=== PATIENT | male | born 1960 | race Caucasian/White ===

== ENCOUNTER 2016-05-14 13:29 | Inpatient (IN) | payer OTHER ==
[~2016-05-14] VITALS: Ht 165.1 cm; Wt 74.8 kg
[~2016-05-14 13:29] MED LIST: ASPIRIN EC325 M2 PO; CLOPIDOGREL75 M1 PO; LIPITOR40 M1 PO; LISINOPRIL2.5 MG PO; LOPRESSOR 25MG25 MG PO
--- NOTE | 2016-05-14 15:42 | ED UPPER/LOWER EXTREMITY COMPL ---
History of Present Illness General Chief Complaint: Plantar Puncture Wound Stated Complaint: PUNCTURE WOUND TO L FOOT, SEEN AT [facility] BUT WORSE Source: patient Exam Limitations: no limitations Vital Signs & Intake/Output Vital Signs & Intake/Output Vital Signs Date Time Temp Pulse Resp B/P Pulse O2 O2 Flow FiO2 Ox Delivery Rate 05/14 2052 98.2 66 17 140/83 96 Room Air 05/14 1348 98.0 76 20 135/89 99 Room Air Allergies Coded Allergies: Penicillins (CHILDHOOD REACTION PT THINKS RASH 05/14/16) Reconcile Medications Aspirin (Ecotrin*) 325 MG TABLET.DR 0.5 TAB PO DAILY HEART/BLOOD (Reported) Atorvastatin Calcium (Lipitor) 40 MG TABLET 1 TAB PO DAILY CHOLESTEROL ( Reported) Clopidogrel Bisulfate (Clopidogrel) 75 MG TABLET 1 TAB PO DAILY BLOOD THINNER (Reported) Lisinopril 2.5 MG TABLET 1 TAB PO DAILY BP (Reported) Metoprolol Succinate 25 MG TAB 0.5 TAB PO BID HEART/BP (Reported) Triage Note: PT PRESENTS TO ER C/O OF LEFT FOOT PAIN SINCE SATURDAY. PT STATES HE WAS SEEN AT [facility] ON SATURDAY AFTER A WORK INJURY. PT STATES HE HAD A METAL PIECE GO THROUGH HIS BOOT AT WORK AND HE HAD A PUNCTURE WOUND TO THE BOTTOM OF LEFT FOOT. PT STATES HE WAS STARTED ON KEFLEX AFTER AN XRAY AND WAS ALSO GIVEN PERCOCET FOR PAIN BUT HAS NOT HAD ANY RELIEF. PT STATES TODAY FOOT IS SWOLLEN AND VERY PAINFUL. PT STATES HE WAS NOT HAPPY WITH CARE AT [facility] AND WOULD LIKE TO GET CHECKED OUT. PT STATES HE WAS SUPPOSE TO FOLLOW UP WITH [facility] BUT HAS NOT YET CALLED Triage Nurses Notes Reviewed? yes Onset: Gradual Duration: getting worse Timing: recent history Severity: severe Severity Numbers: 7 HPI: Patient is a 56-year-old male with a past medical history of coronary artery disease times one stent ON PLAVIX who presents emergency room stating 4 days ago he was at work wearing industrial boots where he stepped on a metal sharp object which penetrated his shoe and foot below and above which she subsequently pulled the object out where he was evaluated at [facility] emergency room received x-ray showing concerns of debris and concerns of foreign body which she was administered IV antibiotics and Keflex outpatient. Patient returns to the emergency room with worsening left foot swelling redness and pain. Denies any fever chills. Denies any active discharge. Foot pain is localized to left Tetanus was updated at [facility] emergency room (KATELYN LOMELI) Past History Travel History Traveled to [place] past 21 day No Medical History Any Pertinent Medical History? see below for history Cardiovascular: CAD, hypertension, hyperlipidemia, myocardial infarction History of MRSA: No History of VRE: No History of CDIFF: No Surgical History Surgical History: non-contributory Psychosocial History Who do you live with Spouse Services at Home None What is your primary language Bahamian Tobacco Use: Current Daily Use Daily Tobacco Use Amount/Type: => 5 Cigarettes daily Family History Family History, If Any: FATHER (Didnt know father well). MOTHER (Hip fracture). SISTER (PE). BROTHER (Hypertension). Hx Contributory? No (KATELYN LOMELI) Review of Systems Review of Systems Constitutional: Denies: chills, fever. EENTM: Reports: no symptoms. Respiratory: Reports: no symptoms. Cardiovascular: Reports: no symptoms. Gastrointestinal/Abdominal: Reports: no symptoms. Genitourinary: Reports: no symptoms. Musculoskeletal: Reports: see HPI, muscle pain. Skin: Reports: see HPI, erythema. Neurological/Psychological: Reports: no symptoms. Hematologic/Endocrine: Reports: no symptoms. Immunological: Reports: no symptoms. All Other Systems: Reviewed and Negative (KATELYN LOMELI) Physical Exam Physical Exam General Appearance: no apparent distress, alert, comfortable Head: atraumatic Neurologic/Tendon: normal sensation, normal motor functions, normal tendon functions, responds to pain, no evidence tendon injury, no pulse deficit Skin: normal color Comments: Well-developed well-nourished no apparent distress. HEENT: Atraumatic, extraocular motion intact Neck: Supple, no lymphadenopathy Back: Nontender Respiratory: No respiratory distress Neuro: Alert and oriented x3 Psych: Mood affect normal, normal memory normal judgment. Diagram Feet Bottom 1) 2 mm circular puncture wound noted 2) Generalized erythema warmth swelling and tenderness Feet Top 1) Well-healing 2 mm puncture wound no active discharge 2) Generalized erythema warmth tenderness and swelling (KATELYN LOMELI) Progress Differential Diagnosis: arterial insufficiency, cellulitis, CHF, compartment syndrome, contusion, dislocation, DVT, fracture, gout, septic arthritis, sprain, tendon injury, FOREIGN BODY RETENTION Plan of Care: Orders Procedure Date/time Status Admit to inpatient 05/14 2050 Active Vital Signs 05/14 2050 Active Code Status 05/14 2050 Active Patient Data 05/14 193 Active BLOOD CULTURE 05/14 1609 Active COMPREHENSIVE METABOLIC PANEL 05/14 161 Complete CBC WITHOUT DIFFERENTIAL 05/14 1609 Complete Intake & Output 05/14 1554 Active Laboratory Tests 05/14/16 1625: Anion Gap 12, Estimated GFR > 60, BUN/Creatinine Ratio 11.4, Glucose 94, Calcium 10.4 H, Total Bilirubin 0.7, AST 15 L, ALT 25, Alkaline Phosphatase 87, Total Protein 8.1, Albumin 4.3, Globulin 3.8, Albumin/Globulin Ratio 1.1, CBC w Diff NO MAN DIFF REQ, RBC 4.90, MCV 88.2, MCH 28.7, RDW 15.0 H, MPV 7.7, Gran % 81.4 H, Lymphocytes % 13.8 L, Monocytes % 4.3, Eosinophils % 0.4, Basophils % 0.1, Absolute Granulocytes 9.8 H, Absolute Lymphocytes 1.7, Absolute Monocytes 0.5, Absolute Eosinophils 0.1, Absolute Basophils 0, PUBS MCHC 32.6 L Microbiology 05/14 165 BLOOD: Blood Culture - RECD 05/14 1624 BLOOD: Blood Culture - RECD Patient has been on a four-day regiment of antibiotics outpatient in which per patient the symptoms have progressively worsened for concerns of cellulitis and possible foreign body retention. Dr. Beltran evaluated patient and agrees with disposition and plan. Patient will be admitted to general medicine under hospitalist and MAY require surgical intervention and washout and possible removal foreign body Dr. Beltran does state me that he is not overwhelmingly convinced that there is a foreign body however (PATRICIA HUDDLESTON,KATELYN) Diagnostic Imaging: Viewed by Me: Radiology Read. Radiology Impression: SEE COMMENTS Comments: PATIENT: KIRAN DAY PRESENT AGE: 56 PATIENT ACCOUNT NO: [id number] : 56 LOCATION: [facility] ORDERING PHYSICIAN: KATELYN HUDDLESTON SERVICE DATE: 05/14/16 EXAM TYPE: RAD - XRY-FOOT COMPLETE, LEFT EXAMINATION: XR FOOT, LEFT CLINICAL INFORMATION: Status post puncture wound. Evaluate for foreign body. COMPARISON: None TECHNIQUE: AP, lateral, and oblique views of the left foot. FINDINGS: There is a 7 mm oblong maximal dimension opacity identified in between the distal shaft of the left second and third metatarsals only visualized on the frontal radiograph indeterminate in location and etiology. This could represent a sliver of glass in the proper clinical setting. There are degenerative changes in the first metatarsophalangeal joint. IMPRESSION: Indeterminate opacity only visualized on one view, question foreign body location indeterminate. (KATELYN LOMELI) Departure Departure Disposition: STILL A PATIENT Condition: Stable Clinical Impression Primary Impression: Cellulitis of left foot Secondary Impressions: Foreign body in foot, left Referrals: MARION LORA MD (PCP/Family) Departure Forms: Customer Survey General Discharge Information Admission Note Spoke With: DAVIDE ARROYO MD Documentation of Exam: Documentation of any treatments & extenuating circumstances including Concerns Regarding Discharge (functional status, medication knowledge or non-compliance, living conditions, etc.) that warrant an admission rather than observation: [ Discussed patient with Dr. ARROYO who agrees with general medicine admission for concerns of foreign body retention and cellulitis that has failed outpatient treatment with antibiotics. Patient requires IV antibiotics, podiatry consultation, and possible surgical intervention. Outpatient treatment at this time would be medically harmful] (KATELYN LOMELI) PA/BIOFUELS RESEARCH SCIENTIST Co-Sign Statement Statement: ED Attending supervision documentation- [] I saw and evaluated the patient. I have also reviewed all the pertinent lab results and diagnostic results. I agree with the findings and the plan of care as documented in the PA's/BIOFUELS RESEARCH SCIENTIST's documentation. [x] I have reviewed the ED Record and agree with the PA's/BIOFUELS RESEARCH SCIENTIST's documentation. [] Additions or exceptions (if any) to the PAs/BIOFUELS RESEARCH SCIENTIST's note and plan are summarized below: [] (MORIAH ANDREA DO
--- NOTE | 2016-05-14 16:49 | RADIOLOGY REPORT ---
EXAMINATION: XR FOOT, LEFT CLINICAL INFORMATION: Status post puncture wound. Evaluate for foreign body. COMPARISON: None TECHNIQUE: AP, lateral, and oblique views of the left foot. FINDINGS: There is a 7 mm oblong maximal dimension opacity identified in between the distal shaft of the left second and third metatarsals only visualized on the frontal radiograph indeterminate in location and etiology. This could represent a sliver of glass in the proper clinical setting. There are degenerative changes in the first metatarsophalangeal joint. IMPRESSION: Indeterminate opacity only visualized on one view, question foreign body location indeterminate.
[2016-05-14 17:22] LABS: ABSOLUTE BASOPHIL COUNT 0 /CUMM (0.0-0.2); ABSOLUTE EOSINOPHIL COUNT 0.1 /CUMM (0.0-0.7); ABSOLUTE GRANULOCYTE CT 9.8 /CUMM (1.4-6.5); ABSOLUTE LYMPH COUNT 1.7 /CUMM (1.2-3.4); ABSOLUTE MONOCYTE COUNT 0.5 /CUMM (0.10-0.60); BASOPHIL % 0.1 % (0.0-2.0); EOSINOPHIL % 0.4 % (0-5); GRANULOCYTE % 81.4 % (42.2-75.2); HEMATOCRIT 43.3 % (42-52); MEAN CORPUSCULAR HGB 28.7 PG (27.0-31.0); MEAN CORPUSCULAR HGB CONC 32.6 G/DL (33.0-37.0); MEAN CORPUSCULAR VOLUME 88.2 FL (80.0-94.0); MEAN PLATELET VOLUME 7.7 FL (7.4-10.4); PLATELET COUNT 368 /CUMM (130-400); WHITE BLOOD CELL COUNT 12.1 /CUMM (4.8-10.8)
[2016-05-14] MEDS ORDERED: LISINOPRIL2.5 M1 PO (18:46)
[2016-05-14] MEDS ORDERED: METOPROLOL SUCC25 M1 PO (18:46)
--- NOTE | 2016-05-14 21:47 | History & Physical ---
MARILYN MCKEON MD 05/14/16 2146: General Information and HPI History of Present Illness: 56-year-old man with past medical history of coronary artery disease status post PCI with stent (2012) seen for evaluation of a left foot puncture wound. 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 The piece of metal pierced his left and went through his foot. The patient immediately remove the piece of metal and feels he "got all of it". There was a scant amount of blood loss that quickly stopped. Patient continued to work with this injury before returning to home that evening for which then he will went to [facility] for evaluation. Patient was assessed and reportedly given Keflex and Percocet and discharged home, a she reports he did not receive a tetanus shot as his immunization is up-to-date as of this past December. Presently patient reports that he has had persistent pain in his left foot and limited mobility secondary to pain. He notes a bright red rash that has begun on the dorsal aspect of the foot that is severely tender without any associated drainage. Otherwise patient denies any headache, fever, chills, chest pain, palpitations, shortness of breath, nausea, vomiting, diarrhea, numbness/tingling. Past medical history-CAD status post PCI with stent (2012), hypertension, hyperlipidemia, current every day smoker Social history-smokes half pack per day since 2012 previously smoking 1 pack per day for 40 years, occasional social drinker, denies recreational drug use like marijuana or cocaine Allergies/Medications Allergies: Coded Allergies: Penicillins (CHILDHOOD REACTION PT THINKS RASH 05/14/16) Home Med list Aspirin (Ecotrin*) 325 MG TABLET. 0.5 TAB PO DAILY HEART/BLOOD (Reported) Atorvastatin Calcium (Lipitor) 40 MG TABLET 1 TAB PO DAILY CHOLESTEROL ( Reported) Clopidogrel Bisulfate (Clopidogrel) 75 MG TABLET 1 TAB PO DAILY BLOOD THINNER (Reported) Lisinopril 2.5 MG TABLET 1 TAB PO DAILY BP (Reported) Metoprolol Succinate 25 MG TAB 0.5 TAB PO BID HEART/BP (Reported) Past History Travel History Traveled to [place] past 21 day No Medical History Cardiovascular: CAD, hypertension, hyperlipidemia, myocardial infarction History of MRSA: No History of VRE: No History of CDIFF: No Surgical History Surgical History: non-contributory Past Family/Social History Family History Relations & Conditions if any FATHER (Didnt know father well). MOTHER (Hip fracture). SISTER (PE). BROTHER (Hypertension). Psychosocial History Where do you live? Home Services at Home: None Review of Systems Review of Systems Constitutional: Reports: see HPI. Exam & Diagnostic Data Last 24 Hrs of Vital Signs/I&O Vital Signs Date Time Temp Pulse Resp B/P Pulse O2 O2 Flow FiO2 Ox Delivery Rate 05/14 2052 98.2 66 17 140/83 96 Room Air 05/14 1348 98.0 76 20 135/89 99 Room Air Intake & Output 05/14 1600 05/14 0800 05/14 0000 Intake Total Output Total Balance Patient 74.843 kg Weight Physical Exam General Appearance Alert, Oriented X3, Cooperative, No Acute Distress Skin Erythematous / tender rash on left foot HEENT Atraumatic, EOMI, Mucous Membr. moist/pink Neck Supple Cardiovascular Regular Rate, Normal S1, Normal S2, No Murmurs Lungs Clear to Auscultation, Normal Air Movement Abdomen Normal Bowel Sounds, Soft, No Tenderness, No Hepatospenomegaly, No Masses Neurological Normal Speech, Normal Tone, Sensation Intact, Cranial Nerves 3-12 NL Extremities No Clubbing, No Cyanosis, No Edema, Normal Pulses, No Tenderness/ Swelling, Puncture wound to distal plantar aspect of left foot with minimal scabbing and no associated drainage/induration/erythema, Exit wound to mid doral aspect of left foot with associated erythema/induration and no drainage, pulses intact, warm to touch, severe tenderness to distal foot, no deformity or obvious foreign body Vascular Normal Pulses, Pulses Symmetrical Last 24 Hrs of Labs/Jonathan: Laboratory Tests 05/14/16 1625: Anion Gap 12, Estimated GFR > 60, BUN/Creatinine Ratio 11.4, Glucose 94, Calcium 10.4 H, Total Bilirubin 0.7, AST 15 L, ALT 25, Alkaline Phosphatase 87, Total Protein 8.1, Albumin 4.3, Globulin 3.8, Albumin/Globulin Ratio 1.1, CBC w Diff NO MAN DIFF REQ, RBC 4.90, MCV 88.2, MCH 28.7, RDW 15.0 H, MPV 7.7, Gran % 81.4 H, Lymphocytes % 13.8 L, Monocytes % 4.3, Eosinophils % 0.4, Basophils % 0.1, Absolute Granulocytes 9.8 H, Absolute Lymphocytes 1.7, Absolute Monocytes 0.5, Absolute Eosinophils 0.1, Absolute Basophils 0, PUBS MCHC 32.6 L Microbiology 05/14 1655 BLOOD: Blood Culture - RECD 05/14 1624 BLOOD: Blood Culture - RECD Diagnostic Data Other Results EXAM TYPE: RAD - XRY-FOOT COMPLETE, LEFT IMPRESSION: Indeterminate opacity only visualized on one view, question foreign body location indeterminate. Assessment/Plan Assessment: 56-year-old man with multiple medical problems seen for evaluation of a puncture wound to his left foot this past Saturday. ED course: -Vitals: Temp 98.0-98.2, HR 66-76, RR 17-20, BP 135-140/83-89, O2 96-99% on room air -Significant Labs: WBC 12.1, Hgb/HCT 14.1/43.3, normal serum chemistries, calcium 10.4 (corrected calcium 10.2), AST/ALT 15/25, alkaline phosphatase 87 -Studies: Left foot [id number] opacity only visualized on one view possible foreign body -Interventions: Toradol, ciprofloxacin IV, ceftriaxone IV, blood cultures Cellulitis with possible retained foreign body status post puncture wound Patient with traumatic penetrating wound to left foot with immediate self extraction of the foreign body. Previously seen and evaluated at [facility] and discharged with oral Keflex and Percocet. X-ray demonstrates a possible retained foreign body. Patient was given 1 dose of ciprofloxacin and ceftriaxone in the ED. -General medicine -Ceftazidime 1 g IV every 8 hours -Clindamycin 600 mg IV every 8 hours -Podiatry consult -Follow up blood cultures CAD with past SC status post PCI with stent -Aspirin 162 mg by mouth daily -Plavix 75 mg by mouth daily Hypertension -Lisinopril 2.5 mg by mouth daily -Metoprolol 12.5 mg by mouth twice a day Hyperlipidemia-atorvastatin 40 mg by mouth daily Current every day smoker-Wellbutrin Pain plan-Toradol/acetaminophen/morphine Diet-heart healthy diet DVT prophylaxis-Lovenox CODE STATUS-full code As Ranked By This Provider Problem List: 1. Cellulitis of left foot 2. Foreign body in foot, left Core Measures/Miscellaneous Acute Coronary Syndrome ACS Diagnosis: No Cerebrovascular Accident CVA/TIA Diagnosis: No Congestive Heart Failure CHF Diagnosis: No Venous Thromboembolism VTE Risk Factors: Acute medical illness, Age > 40 [facility] prophylaxis d/t: LE Injury, current No VTE Pharm Prophylaxis d/t: No contraindications VTE Diagnosis: No VTE Type: NONE VTE Confirmed by (Test): NONE Severe Sepsis Severe Sepsis Present: No Septic Shock Septic Shock Present: No Miscellaneous Documentation Attending Case Discussed With: DAVIDE ARROYO MD Primary Care Physician: MARION LORA MD Patient sees these Specialists Dr. Mondragon Level of Patient Care: General Medicine Consults Needed: Consulting Specialty: Podiatry NEW ALEXIS 05/14/16 2210: Resident Review Statement Resident Statement: examined this patient, discussed with international trade teacher, agreed with international trade teacher Other Findings: Patient is a 53-year-old gentleman with past medical history significant for coronary artery disease status post stent 2013, hypertension and hyperlipidemia presented to the ED for the evaluation of left foot puncture wound with swelling. The injury happened on Saturday, when he stepped out of the truck on a sharp nail, the nail went through the left foot. He immediately removed the nail, noticed minimal bleeding. He continued to work during the day, during the night the swelling of the left foot got worse he went to the [place] ED and was discharged on Keflex and Bactrim. Patient took the diabetic for 3 days without any improvement and he came to the ED for further evaluation. Patient is up-to-date with his vaccines received tetanus shot last December 2015. In the ED patient reported pain 8/10 throbbing pain in the left foot without any radiation. Denied any fever or chills. Denied any chest discomfort or breathing palpitations no urinary bowel habit complaints. Patient continues to smoke half pack a day. Occasional drinker denies any illicit drug use. Vitals on admission to be 98, heart rate 66, respiratory rate 20, blood pressure 135/89 on room air. Appearance: Alert and oriented 3 , moderate distress Skin: Grossly normal. HEENT: PEERLA Neck: Supple, No JVD Cardiovascular: Regular Rate, Normal S1, Normal S2, No Murmurs Lungs: Lungs clear to auscultation bilaterally Abdomen: Normal bowel sounds without any tenderness Neurological: Neuro exam intact grossly Extremities: Puncture wound evident on distal plantar region of left foot , without any erythema or induration . Exit wound on mid doral aspect of left foot , associated erythema/redness, without any discharge.pulses palpable , pulses intact, severe tenderness on palpation. No obvious signs of foreign body Vascular: Normal Pulses. Pertinent labs on admission: Leukocytosis 12.1 without any bandemia, H&H stable 14.1/43.3, normal BEP, serum calcium level X.4 with corrected calcium of 10.2. Left foot x-ray:Indeterminate opacity only visualized on one view, question foreign body location indeterminate. Assessment and plan 1. Cellulitis of the left foot status post puncture wound: * Admit the patient [facility] floor. * Patient received one-time dose of IV ciprofloxacin, ceftriaxone, we'll start the patient on IV ceftazidime to cover for possible pseudomonal infection and IV clindamycin to cover for anaerobes. * Blood pressure stable no need of IV fluids for now, * Watch for hemodynamic instability. * Severe pain controlled with IV morphine continue Toradol for moderate pain controlled. * Follow-up blood cultures and modify antibiotics according to the cultures * Patient has been evaluated by the gas appliance adjuster Dr. Quinones in the ED recommended to continue with IV antibiotics. If there is no improvement in the swelling in the next 24-48 hours, patient will require surgical intervention to remove foreign body. * Ct of left lower ext for further evaluation of foreign body * Keep the leg elevated. 2. History of coronary artery disease status post stent, hypertension and hyperlipidemia * Continue aspirin and Plavix metoprolol and statin, lisinopril from morning. 3. Current every day smoker. Continue bupropion Moderate severe pain controlled with IV morphine Heart healthy diet DVT prophylaxis with subcutaneous Lovenox Patient is full code. DINAMUNIRWARD 05/15/16 0645: Attending MD Review Statement Attending Statement Attending MD Statement: examined this patient, discuss w/resident/PA/BOWLING TEACHER, agreed w/resident/PA/BOWLING TEACHER, discussed with family, reviewed EMR data (avail), reviewed images, amended to note Attending Assessment/Plan: CC: Penetrating wound on left foot PMH: CAD S/P stent Patient had a puncture wound 4 days back, metal object went through and through, penetrating from plantar aspect obliquely coming out from the dorsal aspect of foot, patient pulled that object out (not sure if completely), worked that day then went to [facility] where he was prescribed oral antibiotics ( Keflex). Pain redness swelling worsened on that foot, so he came to ER. Endorses chills but no fever. Vitals: Afebrile, pulse, RR, blood pressure, O2 saturation within acceptable range. On examination a O 3, no acute distress, neck supple, no JVD, no lymphadenopathy, mucosa moist, peripheral pulses perfusion normal, no focal neurological deficit, CVS: S1-S2, RRR. RS: Clear to auscultate bilaterally., Abdomen: Soft, NT, ND, bowel sounds present. Left lower extremity has a puncture wound on the plantar and dorsal aspect, dorsal aspect times surrounding cellulitis marked, no obvious discharge, pulses perfusion intact, joint movements at the metatarsophalangeal joints ankle joint intact. Labs: WBC 12.1, neutrophils 81%, calcium 10.4 otherwise CBC BMP unremarkable. Foot x-ray: Intermediate opacity only visualized on one view, question foreign body location indeterminate A and P #1 right foot cellulitis after penetrating wound, with possible foreign body inside the foot, obtain CT for further evaluation, appreciate for nitric consult , given suspected foreign body in penetrating wound, continue ceftaz and clindamycin for broader coverage, blood culture, de-escalate antibiotics according to clinical improvement, trend lactate #2 resume including aspirin, atorvastatin, lisinopril, metoprolol, bupropion, hold Plavix for expected surgery.
--- NOTE | 2016-05-14 21:55 | Cons- Podiatry ---
General Information and HPI Consulting Request Date of Consult: 05/14/16 Requested By: DAVIDE ARROYO MD History of Present Illness: Mr Bonilla is a 56 year old male who sustained a puncture injury to his left foot a few days ago while at work. He states that he stepped down on a metal projection, which entered his plantar foot and exited through the dorsum. He was wearing a sock and a boot at the time. He initially presented to [facility] and was given a dose of IV antibiotics and sent home with po keflex. He states that his foot has worsened despite the keflex, with an increase in pain, redness and swelling. He denies systemic signs of infection. Denies nausea, vomiting, fever or chills. Allergies/Medications Allergies: Coded Allergies: Penicillins (CHILDHOOD REACTION PT THINKS RASH 05/14/16) Home Med List: Aspirin (Ecotrin*) 325 MG TABLET.DR 0.5 TAB PO DAILY HEART/BLOOD (Reported) Atorvastatin Calcium (Lipitor) 40 MG TABLET 1 TAB PO DAILY CHOLESTEROL ( Reported) Clopidogrel Bisulfate (Clopidogrel) 75 MG TABLET 1 TAB PO DAILY BLOOD THINNER (Reported) Lisinopril 2.5 MG TABLET 1 TAB PO DAILY BP (Reported) Metoprolol Succinate 25 MG TAB 0.5 TAB PO BID HEART/BP (Reported) Past History Medical History Cardiovascular: CAD, hypertension, hyperlipidemia, myocardial infarction Surgical History Pertinent Surgical History: non-contributory Family History Relations & Conditions If Any: FATHER (Didnt know father well). MOTHER (Hip fracture). SISTER (PE). BROTHER (Hypertension). Psychosocial History Services at Home: None Review of Systems Review of Systems: Unremarkable except for that noted in history of present illness. Exam & Diagnostic Data Vital Signs and I&O Vital Signs Date Time Temp Pulse Resp B/P Pulse O2 O2 Flow FiO2 Ox Delivery Rate 05/14 2052 98.2 66 17 140/83 96 Room Air 05/14 1348 98.0 76 20 135/89 99 Room Air Intake & Output 05/14 1600 05/14 0800 05/14 0000 05/13 1600 05/13 0800 05/13 0000 Intake Total Output Total Balance Patient 165 lb Weight Physical Exam: Neurovascular status intact. Stellate puncture site noted plantarly at the central ball of the foot, with an exit site noted dorsally at the midfoot. Edema and cellulitis noted about the forefoot, with extension proximally to the distal leg. No fluctuance or crepitus noted. Assessment/Plan Assessment/Plan Cellulitis left foot, s/p puncture wound. Recommend admission for IV antibiotics. Elevate the foot. Will monitor for improvement. If no clinical improvement in 24-48 hours, will irrigate foot and remove foreign body. Consult Acknowledgment - Thank you for your consult request. Attending MD Review Statement Attending Statement Attending MD Statement: examined this patient
[2016-05-14 22:58] VITALS: BP 122/74
--- NOTE | 2016-05-15 06:30 | PN- Housestaff ---
MIKE RICHARD,MARILYN 05/15/16 0626: Subjective Follow-up For: Left foot puncture wound Left foot cellulitis Left foot retained foreign body Subjective: Patient seen and examined. He is seen lying flat in bed resting comfortably. He appears to be in no acute distress. He reports that he pain is well controlled on the current pain medication regimen and that his foot appears to be improving. Otherwise he has no new complaints. Otherwise he denies any headache, fever, chills, chest pain, palpitations, shortness of breath, cough, nausea, vomiting, diarrhea. No overnight events reported. Review of Systems Constitutional: Reports: see HPI. Objective Last 24 Hrs of Vital Signs/I&O Vital Signs Date Time Temp Pulse Resp B/P Pulse O2 O2 Flow FiO2 Ox Delivery Rate 05/14 2258 97.3 65 20 122/74 95 Room Air 05/14 2053 98.2 66 17 140/83 96 Room Air 05/14 1348 98.0 76 20 135/89 99 Room Air Intake & Output 05/15 0800 05/15 0000 05/14 1600 Intake Total Output Total Balance Patient 74.843 kg 74.843 kg Weight Physical Exam General Appearance: Alert, Oriented X3, Cooperative, No Acute Distress Other Physical Findings: General - well developed, well nourished middle aged caucasiasn man in no acute distress HEENT - NCAT, PERRL, EOMI, anicteric sclera CVS - S1, S2 w/o m/g/r Resp - CTA bilaterally GI - soft, nontender, nondistended, bowel sounds intact Neuro - Awake and alert, CN II - XII grossly intact Ext - normal pulses, no cyanosis/clubbing/edema, mild improvement of the left foot erythema, persistent warmth and tenderness, no obvious drainage or deformity Current Medications: Current Medications Sig/Andrea Start time Last Medication Dose Route Stop Time Status Admin Acetaminophen 650 MG Q6P PRN 05/14 2200 AC PO Aspirin Buffered 162 MG DAILY 05/15 1000 AC PO Atorvastatin Calcium 40 MG DAILY 05/15 1000 AC PO Ceftazidime 1,000 MG Q8H 05/15 0100 AC 05/15 IV 0100 Ceftazidime 1,000 MG IQ8 05/14 2199 DC IV Ceftriaxone Sodium 0 .STK-MED ONE 05/14 1744 DC .ROUTE Ceftriaxone Sodium 1,000 MG ONCE ONE 05/14 1730 DC 05/14 IV 05/14 1731 1818 Ciprofloxacin 0 .STK-MED ONE 05/14 1743 DC PO Ciprofloxacin 500 MG ONCE ONE 05/14 1730 DC 05/14 PO 05/14 1731 1744 Clindamycin 600 MG Q8H 05/15 0100 AC 05/15 Dextrose/Water 50 ML IV 0105 Clindamycin 600 MG IQ8 05/14 2200 DC Dextrose/Water 50 ML IV Clopidogrel Bisulfate 75 MG DAILY 05/15 1000 AC PO Enoxaparin Sodium 40 MG DAILY 05/15 1000 AC SC Ketorolac 15 MG Q6P PRN 05/14 220 AC Tromethamine IV 05/19 2159 Ketorolac 0 .STK-MED ONE 05/14 1804 DC Tromethamine IM Ketorolac 30 MG ONCE ONE 05/14 1800 DC 05/14 Tromethamine IV 05/14 1801 1818 Lisinopril 2.5 MG DAILY 05/15 1000 AC PO Metoprolol Tartrate 12.5 MG BID 05/15 1000 AC PO Metoprolol Tartrate 12.5 MG BID 05/14 220 DC PO Morphine Sulfate 4 MG Q4P PRN 05/14 220 AC 05/15 IV 0300 Last 24 Hrs of Lab/Jonathan Results Last 24 Hrs of Labs/Mics: Laboratory Tests 05/14/16 1625: Anion Gap 12, Estimated GFR > 60, BUN/Creatinine Ratio 11.4, Glucose 94, Calcium 10.4 H, Total Bilirubin 0.7, AST 15 L, ALT 25, Alkaline Phosphatase 87, Total Protein 8.1, Albumin 4.3, Globulin 3.8, Albumin/Globulin Ratio 1.1, CBC w Diff NO MAN DIFF REQ, RBC 4.90, MCV 88.2, MCH 28.7, RDW 15.0 H, MPV 7.7, Gran % 81.4 H, Lymphocytes % 13.8 L, Monocytes % 4.3, Eosinophils % 0.4, Basophils % 0.1, Absolute Granulocytes 9.8 H, Absolute Lymphocytes 1.7, Absolute Monocytes 0.5, Absolute Eosinophils 0.1, Absolute Basophils 0, PUBS MCHC 32.6 L Microbiology 05/14 1655 BLOOD: Blood Culture - RECD 05/14 162 BLOOD: Blood Culture - RECD Assessment/Plan Assessment: Patient continues to do well while on intravenous antibiotics, he remains afebrile without leukocytosis. Per podiatry recommendations if no clinical improvement in 24-40 hours for will be irrigated with foreign body removal. CT foot pending for further evaluation of injury. Cellulitis with possible retained foreign body status post puncture wound Patient with traumatic penetrating wound to left foot with immediate self extraction of the foreign body. Previously seen and evaluated at [facility] and discharged with oral Keflex and Percocet. X-ray demonstrates a possible retained foreign body. Patient was given 1 dose of ciprofloxacin and ceftriaxone in the ED. -General medicine -Ceftazidime 1 g IV every 8 hours -Clindamycin 600 mg IV every 8 hours -Podiatry consult -Follow up blood cultures -Follow up CT foot CAD with past ID status post PCI with stent -Aspirin 162 mg by mouth daily -Plavix 75 mg by mouth daily Hypertension -Lisinopril 2.5 mg by mouth daily -Metoprolol 12.5 mg by mouth twice a day Hyperlipidemia-atorvastatin 40 mg by mouth daily Current every day smoker-Wellbutrin Pain plan-Toradol/acetaminophen/morphine Diet-heart healthy diet DVT prophylaxis-Lovenox CODE STATUS-full code Problem List: 1. Cellulitis of left foot Pain Ratin Pain Location: Left foot Pain Goal: Remain pain free Pain Plan: As noted in plan Tomorrow's Labs & Rationales: Complete blood count-cellulitis Serum chemistries-antibiotics Consulting Request: Consulting Specialty: Podiatry SCARLET PENG MD 05/15/16 1239: Attending Review Statement Attending Statement Attending MD Statement: examined this patient, discuss w/resident/PA/HEAD FILTER TANK TENDER HELPER, agreed w/resident/PA/HEAD FILTER TANK TENDER HELPER, discussed with family, reviewed EMR data (avail), discussed with nursing, reviewed images, amended to note Attending Assessment/Plan: The patient was seen and discussed with house staff. Improvement on current antibiotics noted. Await decision regarding surgery/Podiatry.
--- NOTE | 2016-05-15 06:46 | Admission Certification ---
Admission Certification Certification Statement - As attending physician, I certify that at the time of - admission, based on clinical presentation, severity of - symptoms, need for further diagnostic testing and - therapeutic interventions, and risk of adverse outcomes - without in-hospital treatment, in my clinical assessment, - this patient requires an acute hospital stay for a minimum - of two nights or longer. I have also considered psychsocial - factors such as support system, advanced age, financial - issues, cognitive issues, and failed out-patient treatments, - past re-admission history, safety of patient, and lack of - compliance as applicable. Specific rationale supporting this admission is: Left foot cellulitis with penetrating injury
[2016-05-15 08:00] VITALS: BP 122/80
[2016-05-15 08:58] LABS: ABSOLUTE BASOPHIL COUNT 0 /CUMM (0.0-0.2); ABSOLUTE GRANULOCYTE CT 6.6 /CUMM (1.4-6.5); ABSOLUTE LYMPH COUNT 1.9 /CUMM (1.2-3.4); ABSOLUTE MONOCYTE COUNT 0.7 /CUMM (0.10-0.60); RED BLOOD CELL CT 4.39 /CUMM (4.70-6.10); WHITE BLOOD CELL COUNT 9.4 /CUMM (4.8-10.8)
[2016-05-15 09:17] LABS: ABSOLUTE EOSINOPHIL COUNT 0.1 /CUMM (0.0-0.7); BASOPHIL % 0.3 % (0.0-2.0); EOSINOPHIL % 1.2 % (0-5); GRANULOCYTE % 70.9 % (42.2-75.2); MEAN CORPUSCULAR HGB 29.4 PG (27.0-31.0); MEAN CORPUSCULAR HGB CONC 33.8 G/DL (33.0-37.0); MEAN CORPUSCULAR VOLUME 86.7 FL (80.0-94.0); MEAN PLATELET VOLUME 7.8 FL (7.4-10.4); PLATELET COUNT 354 /CUMM (130-400); RBC DISTRIBUTION WIDTH 14.7 % (11.5-14.5)
[2016-05-15 09:23] LABS: HEMATOCRIT 38.1 % (42-52)
--- NOTE | 2016-05-15 13:34 | CT SCAN REPORT ---
EXAMINATION: CT LOWER EXTREMITY WITHOUT CONTRAST, LEFT CLINICAL INFORMATION: Left foot swelling status post stepping on metal, puncture wound. Evaluate for foreign body. COMPARISON: Radiograph dated 05/14/2016. TECHNIQUE: Multidetector volumetric imaging was obtained through the left foot and ankle without contrast. Multiplanar reformatted images in coronal and sagittal orientations were submitted. DLP: 377 mGy-cm. FINDINGS: Within the second metatarsal head, there is a 2.8 cm long tubular defect with a diameter of approximately 2.5 mm, corresponding to the site of a puncture wound. This extends from the dorsal cortex along the distal metatarsal shaft through the plantar aspect of the articular surface. 2 small ossific fragments are present at the dorsum of the metatarsal shaft, the larger of which measures 0.7 cm in length. No additional fractures are identified. No metallic foreign bodies are identified. There is moderate degenerative arthritis of the 1st MTP joint with a bipartite medial hallux sesamoid, nonuniform joint space narrowing, subchondral sclerosis, and marginal osteophytes. Minimal degenerative arthritis is present at the naviculocuneiform joints. Imaged portion of the ankle is unremarkable without fracture or malalignment. Calcific atherosclerosis is present within the arteries of the ankle. Tendons are grossly intact. There is subcutaneous edema and soft tissue swelling. IMPRESSION: 1. A long tubular defect in the 2nd metatarsal shaft and head with 2 small cortical fragments at the dorsal margin of the metatarsal shaft. No metallic foreign bodies are identified. No additional fractures. 2. Moderate first MTP osteoarthritis. 3. Generalized soft tissue swelling and subcutaneous disease edema in the foot.
[2016-05-15 14:29] VITALS: BP 118/80
[2016-05-15 22:17] VITALS: BP 122/69
--- NOTE | 2016-05-16 04:29 | PN- Housestaff ---
MARILYN MCKEON MD 05/16/16 0429: Subjective Follow-up For: Left foot puncture wound Left foot cellulitis Left foot retained foreign body Subjective: Patient seen and examined. He is seen lying flat in bed resting comfortably. He appears to be in no acute distress. At his bedside is a family member whom is up-to-date about his clinical condition and has no further questions at this time. Currently patient states that he is able to ambulate with the assistance of crutches and states that his pain is well controlled on the current regimen. Otherwise he has no new complaints and feels well. Additionally he denies any headache, fever, chills, chest pain, palpitations, shortness of breath, cough, nausea, vomiting, diarrhea. No overnight events reported. Review of Systems Constitutional: Reports: see HPI. Objective Last 24 Hrs of Vital Signs/I&O Vital Signs Date Time Temp Pulse Resp B/P Pulse O2 O2 Flow FiO2 Ox Delivery Rate 05/16 1434 98.4 80 20 130/80 94 05/16 0956 62 130/80 05/16 0956 62 130/80 05/16 0717 95.7 71 20 130/80 95 Room Air 05/15 2217 98.2 82 20 122/69 94 Intake & Output 05/16 1600 05/16 0800 05/16 0000 Intake Total 320 1000 Output Total Balance 320 1000 Intake, IV 80 200 Intake, Oral 240 800 Number 0 Bowel Movements Physical Exam General Appearance: Alert, Oriented X3, Cooperative, No Acute Distress Other Physical Findings: General -well-developed, well-nourished middle-aged man in no acute distress HEENT - NCAT, PERRL, EOMI, anicteric sclera Cardio - S1, S2 w/o murmurs/gallops/rubs Resp - CTA bilaterally w/o wheezing/rhochi/crackles GI - soft, nontender, nondistended, bowel sounds present Neuro - Awake and alert, CN II - XII grossly intact Extremities -normal pulses, left lower extremity elevated and a foam pad, markedly improved erythema of the dorsal aspect of the left foot, well-healed exit wound without any obvious drainage on the extremity, well-healed entrance wound on the plantar aspect of the extremity Current Medications: Current Medications Sig/Andrea Start time Last Medication Dose Route Stop Time Status Admin Acetaminophen 650 MG Q6P PRN 05/14 2200 AC PO Aspirin Buffered 162 MG DAILY 05/15 1000 AC 05/16 PO 0952 Atorvastatin Calcium 40 MG 2200 05/15 2200 AC 05/15 PO 2217 Ceftazidime 1,000 MG Q8H 05/15 0100 AC 05/16 IV 0951 Clindamycin 600 MG Q8H 05/15 0100 AC 05/16 Dextrose/Water 50 ML IV 0952 Clopidogrel Bisulfate 75 MG DAILY 05/15 1000 AC 05/16 PO 0952 Enoxaparin Sodium 40 MG DAILY 05/15 1000 AC 05/16 SC 0952 Ketorolac 15 MG Q6P PRN 05/14 2200 AC 05/15 Tromethamine IV 05/19 2159 1605 Lisinopril 2.5 MG DAILY 05/15 1000 AC 05/16 PO 0956 Metoprolol Tartrate 12.5 MG BID 05/15 1000 AC 05/16 PO 0956 Morphine Sulfate 4 MG Q4P PRN 05/14 2200 AC 05/16 IV 0625 Oxycodone/ 1 TAB Q6P PRN 05/15 1015 AC 05/16 Acetaminophen PO 1314 Patient Medication 1 ED .STK-MED ONE 05/16 1332 [facility] 05[facility]16 1333 Last 24 Hrs of Lab/Jonathan Results Last 24 Hrs of Labs/Mics: Laboratory Tests 05/16/16 0612: Anion Gap 11, Estimated GFR > 60, BUN/Creatinine Ratio 14.3, CBC w Diff NO MAN DIFF REQ, RBC 4.38 L, MCV 87.3, MCH 29.1, RDW 14.6 H, MPV 7.7, Gran % 68.1, Lymphocytes % 23.3, Monocytes % 6.9, Eosinophils % 1.2, Basophils % 0.5, Absolute Granulocytes 5.8, Absolute Lymphocytes 2.0, Absolute Monocytes 0.6, Absolute Eosinophils 0.1, Absolute Basophils 0, PUBS MCHC 33.4 Assessment/Plan Assessment: Patient continues to do well while on intravenous antibiotics, he remains afebrile without leukocytosis. Per podiatry recommendations if no clinical improvement in 24-40 hours for will be irrigated with foreign body removal. CT foot demonstrated possible small bone fragments in the dorsal margin of the foot and pulled out the presence of any foreign metallic objects. Patient is to be discharged home to complete a total antibiotic course of 7 days of clindamycin and ciprofloxacin with instruction to follow-up with his primary care provider and Dr. Beltran after discharge. He was also provided a short prescription of Percocet for pain control, CT DAIRY CONSULTANT checked and placed on chart. Cellulitis with possible retained foreign body status post puncture wound Patient with traumatic penetrating wound to left foot with immediate self extraction of the foreign body. Previously seen and evaluated at [facility] and discharged with oral Keflex and Percocet. X-ray demonstrates a possible retained foreign body. Patient was given 1 dose of ciprofloxacin and ceftriaxone in the ED. CT foot demonstrated possible small bone fragments in the dorsal margin of the foot and pulled out the presence of any foreign metallic objects. -General medicine -Ceftazidime 1 g IV every 8 hours -Clindamycin 600 mg IV every 8 hours -Podiatry consult -Follow up blood cultures CAD with past UT status post PCI with stent -Aspirin 162 mg by mouth daily -Plavix 75 mg by mouth daily Hypertension -Lisinopril 2.5 mg by mouth daily -Metoprolol 12.5 mg by mouth twice a day Hyperlipidemia-atorvastatin 40 mg by mouth daily Current every day smoker-Wellbutrin Pain plan-Toradol/acetaminophen/morphine Diet-heart healthy diet DVT prophylaxis-Lovenox CODE STATUS-full code Problem List: 1. Cellulitis of left foot Pain Ratin Pain Location: Left foot Pain Goal: Pain 4 or less Pain Plan: As noted in plan Tomorrow's Labs & Rationales: None Consulting Request: Consulting Specialty: Podiatry SCARLET PENG MD 05/16/16 1339: Attending Review Statement Attending Statement Attending MD Statement: examined this patient, discuss w/resident/PA/HIM SPECIALIST, agreed w/resident/PA/HIM SPECIALIST, discussed with family, reviewed EMR data (avail), discussed with nursing, discussed with case mgmt, reviewed images, amended to note Attending Assessment/Plan: The patient was seen and discussed with house staff and Podiatry. Significant improvement with antibiotics. OK to discharge today on po antibiotics.
[2016-05-16 07:17] VITALS: BP 130/80
[2016-05-16 08:11] LABS: ABSOLUTE BASOPHIL COUNT 0 /CUMM (0.0-0.2); ABSOLUTE EOSINOPHIL COUNT 0.1 /CUMM (0.0-0.7); ABSOLUTE GRANULOCYTE CT 5.8 /CUMM (1.4-6.5); ABSOLUTE MONOCYTE COUNT 0.6 /CUMM (0.10-0.60); BASOPHIL % 0.5 % (0.0-2.0); EOSINOPHIL % 1.2 % (0-5); GRANULOCYTE % 68.1 % (42.2-75.2); HEMATOCRIT 38.3 % (42-52); MEAN CORPUSCULAR HGB 29.1 PG (27.0-31.0); MEAN CORPUSCULAR HGB CONC 33.4 G/DL (33.0-37.0); MEAN CORPUSCULAR VOLUME 87.3 FL (80.0-94.0); MEAN PLATELET VOLUME 7.7 FL (7.4-10.4); PLATELET COUNT 357 /CUMM (130-400); RBC DISTRIBUTION WIDTH 14.6 % (11.5-14.5); RED BLOOD CELL CT 4.38 /CUMM (4.70-6.10); WHITE BLOOD CELL COUNT 8.6 /CUMM (4.8-10.8)
[2016-05-16] MEDS ORDERED: CIPRO500 M1 PO ×2 (14:09→14:12)
[2016-05-16] MEDS ORDERED: CLEOCIN HCL150 M1 PO ×2 (14:09→14:12)
[2016-05-16] MEDS ORDERED: PERCOCET 5-3251 EACH PO (14:10)
--- NOTE | 2016-05-16 14:14 | Patient Discharge Instructions ---
Discharge Instructions General Discharge Information Special Instructions: Take Ciprofloxacin and Clindamycin as directed. Take Percocet as needed for pain. Follow up with your primary care provider and Dr. Beltran after discharge. Call 911 or return to the ED should your condition worsen. Acute Coronary Syndrome Inclusion Criteria At DC or during hospital stay patient has or had the following: ACS DIAGNOSIS No Discharge Core Measures Meds if any: Prescribed or Continued at Discharge Meds if any: NOT Prescribed or Continued at Discharge Congestive Heart Failure Inclusion Criteria At DC or during hospital stay patient has or had the following: CHF DIAGNOSIS No Discharge Core Measures Meds if any: Prescribed or Continued at Discharge Meds if any: NOT Prescribed or Continued at Discharge Cerebrovascular accident Inclusion Criteria At DC or during hospital stay patient has or had the following: CVA/TIA Diagnosis No Discharge Core Measures Meds if any: Prescribed or Continued at Discharge Meds if any: NOT Prescribed or Continued at Discharge Venous thromboembolism Inclusion Criteria VTE Diagnosis No VTE Type NONE VTE Confirmed by (Test) NONE Discharge Core Measures - Per Current guidelines, there needs to be overlap - treatment for the first 5 days of Warfarin therapy. - If discharged on Warfarin prior to 5 days of - overlap therapy, the patient will need to be - assessed for post discharge needs including - *Post discharge parental anticoagulation - *Warfarin and/or parental anticoagulation education - *Follow up date to check INR post discharge At least 5 days overlap therapy as Inpatient No Meds if any: Prescribed or Continued at Discharge Note: Overlap Therapy is Warfarin and Anticoagulant Meds if any: NOT Prescribed or Continued at Discharge
[2016-05-16 14:34] VITALS: BP 130/80
--- NOTE | 2016-05-16 15:03 | PN- Podiatry ---
Subjective Subjective: Patient seen at bedside with no new acute complaints. Denies nausea, vomiting, fever or chills. Foot pain well controlled with analgesics. Objective Vital Signs and I&Os Vital Signs Date Time Temp Pulse Resp B/P Pulse O2 O2 Flow FiO2 Ox Delivery Rate 05/16 1434 98.4 80 20 130/80 94 05/16 0956 62 130/80 05/16 0956 62 130/80 05/16 0717 95.7 71 20 130/80 95 Room Air 05/15 2217 98.2 82 20 122/69 94 Intake & Output 05/16 1600 05/16 0800 05/16 0000 05/15 1600 05/15 0800 05/15 0000 Intake Total 320 1000 800 320 Output Total Balance 320 1000 800 320 Intake, IV 80 200 80 Intake, Oral 240 800 800 240 Number 0 0 Bowel Movements Patient 165 lb Weight Physical Exam: Significantly improved cellulitis noted to left ankle and foot. No active drainage noted. No pain with palpation to dorsal foot. Assessment/Plan Assessment/Plan Left foot cellulitis, s/p puncture wound. Will follow up with patient next week in office. Attending MD Review Statement Attending Statement Attending MD Statement: examined this patient
--- NOTE | 2016-05-21 10:58 | Discharge Summary ---
Visit Information Visit Dates Admission Date: 05/14/16 Discharge Date: 05/16/16 Hospital Course Course Attending Physician: SCARLET PENG MD Primary Care Physician: MARION LORA MD Consulting Request: Consulting Specialty: Podiatry Hospital Course: 56-year-old man with past medical history of coronary artery disease status post PCI with stent (2012) seen for evaluation of a left foot puncture wound. 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 The piece of metal pierced his left and went through his foot. The patient immediately remove the piece of metal and feels he "got all of it". There was a scant amount of blood loss that quickly stopped. Patient continued to work with this injury before returning to home that evening for which then he will went to [facility] for evaluation. Patient was assessed and reportedly given Keflex and Percocet and discharged home, a she reports he did not receive a tetanus shot as his immunization is up-to-date as of this past December. Presently patient reports that he has had persistent pain in his left foot and limited mobility secondary to pain. He notes a bright red rash that has begun on the dorsal aspect of the foot that is severely tender without any associated drainage. Past medical history-CAD status post PCI with stent (2012), hypertension, hyperlipidemia, current every day smoker ED course: -Vitals: Temp 98.0-98.2, HR 66-76, RR 17-20, BP 135-140/83-89, O2 96-99% on room air -Significant Labs: WBC 12.1, Hgb/HCT 14.1/43.3, normal serum chemistries, calcium 10.4 (corrected calcium 10.2), AST/ALT 15/25, alkaline phosphatase 87 -Studies: Left foot [id number] opacity only visualized on one view possible foreign body -Interventions: Toradol, ciprofloxacin IV, ceftriaxone IV, blood cultures Patient was admitted to the general medicine floor and maintained on intravenous antibiotics for a left foot cellulitis with a possible retained foreign body. Patient was evaluated by podiatry who recommended obtaining follow-up imaging to the x-ray of the foot with a CT scan. CT scan demonstrated no retained metallic foreign body but did comment on potential bone fragments in the soft tissues. Patient received 3 days of intravenous antibiotics and was discharged to home on oral clindamycin and ciprofloxacin to complete a 7 day total course of antibiotics. Blood cultures remained no growth to date on discharge. Patient is to follow-up with Dr. Brown and his primary care provider within 2 weeks of discharge for further evaluation. Allergies: Coded Allergies: Penicillins (CHILDHOOD REACTION PT THINKS RASH 05/14/16) Significant Procedures: EXAM TYPE: RAD - XRY-FOOT COMPLETE, LEFT IMPRESSION: Indeterminate opacity only visualized on one view, question foreign body location indeterminate. EXAM TYPE: CAT - CT LOWER EXT WO IV CONTRAST IMPRESSION: 1. A long tubular defect in the 2nd metatarsal shaft and head with 2 small cortical fragments at the dorsal margin of the metatarsal shaft. No metallic foreign bodies are identified. No additional fractures. 2. Moderate first MTP osteoarthritis. 3. Generalized soft tissue swelling and subcutaneous disease edema in the foot. Disposition Summary Disposition Principal Diagnosis: Left lower extremity cellulitis Additional Diagnosis: Left foot puncture wound Discharge Disposition: home or self care Discharge Instructions General Discharge Information Code Status: Full Code Patient's Diet: Heart healthy diet Patient's Activity: Nonweightbearing in left foot until cleared by podiatry Follow-Up Instructions/Appts: Take Ciprofloxacin and Clindamycin as directed. Take Percocet as needed for pain. Follow up with your primary care provider and Dr. Brown after discharge. Call 911 or return to the ED should your condition worsen. Medications at Discharge Discharge Medications: Continue taking these medications: Clopidogrel Bisulfate (Clopidogrel) 75 MG TABLET 1 Tablet ORAL DAILY Comments: Last Taken: 05/16/16 Time: 10:00 AM Atorvastatin Calcium (Lipitor) 40 MG TABLET 1 Tablet ORAL DAILY Comments: Last Taken: 05/15/16 Time: 10:00 PM Aspirin (Ecotrin*) 325 MG TABLET.DR 0.5 Tablet ORAL DAILY Comments: Last Taken: 05/16/16 Time: 10:00 AM Metoprolol Succinate (Metoprolol Succinate) 25 MG TAB 0.5 Tablet ORAL TWICE DAILY Qty = 30 Comments: Last Taken: 05/16/16 Time: 10:00 AM Lisinopril (Lisinopril) 2.5 MG TABLET 1 Tablet ORAL DAILY Qty = 30 Comments: Last Taken: 05/16/16 Time: 10:00 AM Clindamycin HCl (Cleocin HCl) 150 MG CAPSULE 1 Capsule ORAL THREE TIMES DAILY Qty = 12 Instructions: START TAKING THIS MEDICATION ON 05/17/16 Comments: TAKEN IV ANTIBIOTICS IN HOSPITAL Ciprofloxacin HCl (Cipro) 500 MG TABLET 1 Tablet ORAL TWICE DAILY Qty = 8 Instructions: START TAKING THIS MEDICATION ON 05/17/16 Comments: NOT STARTED IN HOSPITAL, GIVEN IV ANTIBIOTICS IN HOSPITAL Start taking the following new medications: Oxycodone HCl/Acetaminophen (Percocet 5-325 MG Tablet) 5 MG-325 MG TABLET 1 Tablet ORAL EVERY SIX HOURS NEEDED as needed for PAIN SCALE 4-6 ( MODERATE) Qty = 16 No Refills Comments: Last Taken: 05/16/16 Time: 1:00 PM Clindamycin HCl (Cleocin HCl) 150 MG CAPSULE 1 Capsule ORAL THREE TIMES DAILY Qty = 12 No Refills Instructions: START TAKING THIS MEDICATION ON 05/17/16 Ciprofloxacin HCl (Cipro) 500 MG TABLET 1 Tablet ORAL TWICE DAILY Qty = 8 No Refills Instructions: START TAKING THIS MEDICATION ON 05/17/16 Copies To: MOISES BROWN DPM, MD,MARION Attending MD Review Statement Documenting Attending: SCARLET PENG MD Other Findings: The patient was seen and discussed with house staff. Agree with the plan of care as outlined.
== END 2016-05-16 16:03 | DRG 603 ==
LOC: ENRESERVDT → ENRESERVTM → ERH 13:29 → 2NA 20:51 → ERHI 20:51 → 2NA 21:47
PROVIDERS: Internal Medicine Interventional Cardiology; Physician Assistant; Student in an Organized Health Care Education/Training Program; ADMIT Internal Medicine
DX: L03.116 Cellulitis of left lower limb (principal); I10 Essential (primary) hypertension; I25.10 Atherosclerotic heart disease of native coronary artery without angina pectoris; F17.210 Nicotine dependence, cigarettes, uncomplicated; Z95.5 Presence of coronary angioplasty implant and graft; E78.5 Hyperlipidemia, unspecified
CPT/HCPCS: 2NAP; 73630-LT; 82436; 87040; 93005; 93010; 96374; 96375; J0696; J0713; J1650; J1885